=== PATIENT | female | born 1955 | race Hispanic/Latino ===

== ENCOUNTER 2024-12-03 10:04 | Emergency (ER) | payer SELFPAY ==
[2024-12-03 10:11] VITALS: BP 147/99
[2024-12-03 10:11] LABS: Glucose - Point of Care 305 mg/dl (70-99)
[2024-12-03 11:00] VITALS: BP 143/71
[2024-12-03 11:31] LABS: % Basophils 0.3 % (0-2); % Eosinophils 0.1 % (0-6); % Immature Granulocytes 0.4 % (0-0.5); % Lymphocytes 11.9 % (20.5-51.1); % Monocytes 4.4 % (1.7-9.3); % Neutrophils 82.9 % (42.2-75.2); Absolute Lymphocytes 1.2 10^3/uL (1.2-3.4); Absolute Monocytes 0.4 10^3/uL (0.1-0.6); Absolute Neutrophils 8.4 10^3/uL (1.4-6.5); Hematocrit 42.4 % (37.0-47.0); Hemoglobin 14.7 g/dL (12.0-16.0); Mean Corp Hgb Conc. 34.7 g/dL (33.0-37.0); Mean Corpuscular Hgb 31.2 pg (27.0-31.0); Mean Platelet Volume 9.4 fL (7.4-10.4); Nucleated Red Blood Cells % 0 %; Platelet Count 217 10^3/uL (130-400); Red Blood Cell Count 4.71 10^6/uL (4.20-5.40); Red Cell Dist. Width 12.8 % (11.5-14.5); White Blood Cell Count 10.1 10^3/uL (4.8-10.8)
--- NOTE | 2024-12-03 11:42 | ED.GENMED ---
History of Present Illness
<Justin Pascual PA-C - Last Filed: 12/03/24 17:15>
General
Chief Complaint: Change in Mental Status
Time Seen by Provider: 12/03/24 10:57
History of Present Illness
History of Present Illness:
Patient is a 69-year-old female with past medical history of prior nephrectomy and qws-ljhamiu-vwzxdxdyc diabetes here today with family for evaluation of a change in mental status that began earlier this morning. The patient stated she was not
feeling well this morning and developed a headache along her frontal and bilateral temporal regions. Approximately 2 hours prior to arrival family witnessed the patient have ambulatory dysfunction and confusion and ultimately brought her to the
emergency department for evaluation. No falls. Patient does endorse a headache along her frontal and bilateral temporal regions. She also felt off balance and family felt that she was confused, not making sense with her words, and slow to respond
to commands. She was able to walk. No head trauma. No visual changes.
Review of Systems
<Justin Pascual PA-C - Last Filed: 12/03/24 17:15>
Review of Systems
All Other Systems: ROS reviewed and negative except as documented in HPI and ROS
Phy Exam
<Justin Pascual PA-C - Last Filed: 12/03/24 17:15>
Physical Exam
Physical Exam:
GENERAL: Alert , in no apparent distress
EYE: pupils equal and reactive
NECK: Supple
ENT: o/p clr, mmm.
CARDIAC: Regular rate and rhythm .
LUNGS: Clear breath sounds bilaterally, no acute respiratory distress, no wheezes/rales/rhonchi
ABDOMEN: Soft, without focal tenderness, no r/g, no cvat
NEUROLOGICAL: Alert and oriented, no focal neuro deficits, somewhat slow to follow commands but able to do so appropriately
SKIN: Warm and dry, skin intact.
MUSCULOSKELETAL: No edema, well perfused.
PSYCH: Normal and appropriate interaction.
Course
<Justin Pascual PA-C - Last Filed: 12/03/24 17:15>
Orders/Labs/Results
Orders:
Orders
12/03/24 11:09
CT Head & Neck Angio W/wo IV Urgent
Comment:
Reason For Exam: headache, confusion
12/03/24 11:11
Electrocardiogram (*1) Urgent
Reason for Study: Fatigue / Weakness
EKG- Treatment ONCE
12/03/24 11:24
Complete Blood Count/With Diff Urgent
Comprehensive Metabolic Panel Urgent
Lipase Urgent
PTT Urgent
Prothrombin Time Urgent
Troponin I Urgent
12/03/24 12:40
Acetaminophen [Tylenol] 1,000 mg PO NOW STA
12/03/24 14:12
Abdominal Ltd US [US Abdomen Limited] Urgent
Comment:
Reason For Exam: upper abd pain
Abnormal Lab Results
12/03/24 12/03/24
10:10 11:24
MCH 31.2 H pg
(27.0-31.0)
Absolute Neuts (auto) 8.4 H 10^3/uL
(1.4-6.5)
Neutrophils % 82.9 H %
(42.2-75.2)
Lymphocytes % 11.9 L %
(20.5-51.1)
BUN 20 H mg/dl
(7-17)
Glucose 309 H mg/dl
(70-99)
AST 44 H U/L
(14-36)
ALT 65 H U/L
(0-35)
Total Protein 8.5 H g/dl
(6.3-8.2)
POC Glucose 305 H mg/dl
(70-99)
12/03/24 11:24
12/03/24 11:24
Vital Signs
Initial and Last Documented VS:
Initial Vital Signs
Temp Pulse Resp BP Pulse Ox
99.7 F 110 18 147/99 99
12/03/24 10:11 12/03/24 10:11 12/03/24 10:11 12/03/24 10:11 12/03/24 10:11
Last Documented Vital Signs
Temp Pulse Resp BP Pulse Ox
99.7 F 92 17 137/96 96
12/03/24 10:11 12/03/24 16:00 12/03/24 16:00 12/03/24 15:00 12/03/24 16:00
<Tom Leon, DO - Last Filed: 12/03/24 12:44>
Orders/Labs/Results
Orders:
Orders
12/03/24 11:09
CT Head & Neck Angio W/wo IV Urgent
Comment:
Reason For Exam: headache, confusion
12/03/24 11:11
Electrocardiogram (*1) Urgent
Reason for Study: Fatigue / Weakness
EKG- Treatment ONCE
12/03/24 11:24
Complete Blood Count/With Diff Urgent
Comprehensive Metabolic Panel Urgent
Lipase Urgent
PTT Urgent
Prothrombin Time Urgent
Troponin I Urgent
12/03/24 12:40
Acetaminophen [Tylenol] 1,000 mg PO NOW STA
12/03/24 14:12
Abdominal Ltd US [US Abdomen Limited] Urgent
Comment:
Reason For Exam: upper abd pain
Abnormal Lab Results
12/03/24 12/03/24
10:10 11:24
MCH 31.2 H pg
(27.0-31.0)
Absolute Neuts (auto) 8.4 H 10^3/uL
(1.4-6.5)
Neutrophils % 82.9 H %
(42.2-75.2)
Lymphocytes % 11.9 L %
(20.5-51.1)
BUN 20 H mg/dl
(7-17)
Glucose 309 H mg/dl
(70-99)
AST 44 H U/L
(14-36)
ALT 65 H U/L
(0-35)
Total Protein 8.5 H g/dl
(6.3-8.2)
POC Glucose 305 H mg/dl
(70-99)
12/03/24 11:24
12/03/24 11:24
Vital Signs
Initial and Last Documented VS:
Initial Vital Signs
Temp Pulse Resp BP Pulse Ox
99.7 F 110 18 147/99 99
12/03/24 10:11 12/03/24 10:11 12/03/24 10:11 12/03/24 10:11 12/03/24 10:11
Last Documented Vital Signs
Temp Pulse Resp BP Pulse Ox
99.7 F 92 17 137/96 96
12/03/24 10:11 12/03/24 16:00 12/03/24 16:00 12/03/24 15:00 12/03/24 16:00
<Justin Pascual PA-C - Last Filed: 12/03/24 17:15>
MDM/Problems Addressed
Differential Diagnosis Includes:
Patient is a 69-year-old female with past medical history of prior nephrectomy and wxx-nozptmb-xcslnpeuc diabetes here today with family for evaluation of a change in mental status. Overall, patient appears well. Vitals remarkable for a mildly
elevated heart rate and blood pressure. Physical examination described above. Case discussed with ED attending, Dr. Leon, who evaluated patient at bedside. Given change in mental status associated with headache and confusion we will begin with
a CT scan of the head and neck with IV contrast. Will also obtain screening labs and further testing.
Update: Screening labs grossly within normal limits aside from hyperglycemia and mild transaminitis. CT scan reveals no acute findings. There is calcified plaque noted without significant stenosis. An abdominal ultrasound was obtained given
reported findings noted on ED attendings examination which is negative for acute findings. I had a lengthy discussion with the patient and her family member at bedside. The patient is able to ambulate appropriately. She feels improvement in
symptoms overall. I did discuss with patient that our recommendations would be for her to be evaluated as an inpatient and admitted to the hospital for further testing and evaluation but patient declined. Risks discussed. We will discharge at
this time with recommendation to closely follow-up with her primary care provider. Patient provided strict ER precautions to return for any new, worsening, or concerning symptoms. All questions answered.
<Justin Pascual PA-C - Last Filed: 12/03/24 17:15>
*Pulse Oximetry
SaO2: 95
Oxygen Mode of Delivery: Room air
Patient hypoxic: no
*Critical Care Note
Total Time (30-74mins, 75-104mins- exclusive of procedures): Not Applicable
ED Attending Note
<Justin Pascual PA-C - Last Filed: 12/03/24 17:15>
-
Portions of this chart may have been created with voice recognition software.� Occasional wrong word or��sound alike� substitutions may have occurred due to the inherent limitations of voice recognition software.
<Tom Leon DO - Last Filed: 12/03/24 12:44>
ED Attending Note
Patient seen and examined by attending physician: Yes
I performed the substantive portion of visit, reviewed & personally made and approve the management plan that is documented in note by myself or TYRESE.: Yes
ED Attending Note:
Seen with PA examined independently 69-year-old female presents with headache confusion abdominal pain workup in progress
Discharge Plan
Departure
Patient Disposition: Home (Routine Discharge)
Date of Disposition: 12/03/24
Time of Disposition: 16:25
Patient with high blood pressure during this ER visit?: Yes
Condition: Fair
Discharge Problem:
Altered mental status
Referrals:
NONE,* [Family Provider, Internal Medicine]
Activity Restrictions/Additional Instructions:
Please follow-up with your primary care provider within the next 2 to 3 days for close reevaluation.
Return for any new, worsening, or concerning symptoms.
Interventions
Interventions:
*Risk Screen - Suicide Last Done: 12/03/24 10:11
*General Assessment Last Done: 12/03/24 10:11
*Neglect/Abuse Screening Last Done: 12/03/24 10:11
*ED COVID-19 Vaccine History Last Done: 12/03/24 11:29
*Nursing Disposition Last Done: 12/03/24 16:53
ED- Neurological Assessment Last Done: 12/03/24 12:00
ED Swallowing Screen Last Done: 12/03/24 12:45
Discharge Date and Time
Discharge Date/Time: 12/03/24 16:53
Print Language: SWAZI
[2024-12-03 11:43] LABS: INR 1.02; PT 13.7 Sec (11.4-14.6)
[2024-12-03 11:44] LABS: APTT 27.2 Sec (23.4-35.0)
[2024-12-03 12:03] VITALS: BP 143/88
[2024-12-03 12:07] LABS: ALT (SGPT) 65 U/L (0-35); AST (SGOT) 44 U/L (14-36); Albumin 4.4 g/dl (3.5-5.0); Alkaline Phosphatase 61 U/L (38-126); Blood Urea Nitrogen 20 mg/dl (7-17); Calcium 9.8 mg/dl (8.4-10.2); Carbon Dioxide 28 mmol/L (22-30); Chloride 99 mmol/L (98-107); Glucose 309 mg/dl (70-99); Lipase 165 U/L (23-300); Sodium 135 mmol/L (135-145); Total Protein 8.5 g/dl (6.3-8.2); eGFR > 60.00
[2024-12-03 12:09] LABS: Troponin I < 0.012 ng/ml
[2024-12-03] MEDS: TYLENOL 1000 MG PO (12:50)
[2024-12-03 13:00] VITALS: BP 126/76
[2024-12-03 14:00] VITALS: BP 136/84
[2024-12-03 15:00] VITALS: BP 137/96
== END 2024-12-03 16:53 | disposition home or self-care (01) ==
LOC: EMR 10:04
PROVIDERS: Physician Assistant; EMERGENCY PHYSICIAN Emergency Medicine
DX: R41.82 Altered mental status, unspecified (principal); E11.9 Type 2 diabetes mellitus without complications; Z90.5 Acquired absence of kidney
CPT/HCPCS: 99284; 70496; 70498; 76705; 80053; 82962; 83690; 84484; 85025; 85610; 85730; 93005; Q9967